=== PATIENT | male | born 1945 | race Hispanic/Latino ===

== ENCOUNTER 2018-06-11 11:41 | Inpatient (IN) | payer MEDICARE ==
[2018-06-07 12:07] LABS: BASOPHILS % 0.5 % (0.0-1.0); EOSINOPHILS # (AUTO) 0.1 (0.0-0.4); EOSINOPHILS % 1.6 % (0.0-6.0); HEMATOCRIT 25.9 % (38.2-49.6); HEMOGLOBIN 9.1 g/dL (14.0-18.0); LYMPHOCYTES # (AUTO) 0.9 (1.0-3.2); LYMPHOCYTES % 11.5 % (18.0-39.1); MEAN CORPUSCULAR HGB CONC 35.1 g/dL (31-35); MEAN CORPUSCULAR VOLUME 96.6 fL (81-99); MONOCYTES # (AUTO) 0.8 (0.2-0.8); MONOCYTES % 10.3 % (4.4-11.3); NEUTROPHILS # (AUTO) 5.6 (2.1-6.9); NEUTROPHILS % 74.9 % (38.7-80.0); PLATELET COUNT 350 x10e3/uL (140-360); RED BLOOD COUNT 2.68 x10e6/uL (4.3-5.7); RED CELL DISTRIBUTION WIDTH 13.9 % (11.7-14.4)
[2018-06-07 12:25] LABS: ANION GAP 7.1 mmol/L (8-16); BLOOD UREA NITROGEN 9 mg/dL (7-26); BUN/CREATININE RATIO 12 (6-25); CALCIUM 9.1 mg/dL (8.4-10.2); CARBON DIOXIDE 24 mmol/L (22-29); CHLORIDE 106 mmol/L (98-107); CREATININE, SERUM 0.74 mg/dL (0.72-1.25); EST GLOMERULAR FILTRATION RATE > 60 ML/MIN (60-); GLUCOSE 143 mg/dL (74-118); POTASSIUM 4.1 mmol/L (3.5-5.1); SODIUM 133 mmol/L (136-145)
--- NOTE | 2018-06-07 12:50 | Diagnostic Imaging Report ---
EXAMINATION: PA and lateral views of the chest. COMPARISON: None CLINICAL HISTORY: Preoperative examination for cystoscopy DISCUSSION: Right subclavian approach implantable cardiac device body projects over the right upper lung. Leads project over the right atrium and right ventricle. Lungs are well-inflated and without focal consolidation, pleural effusion, or pneumothorax. Normal heart size. No pulmonary edema. Atherosclerotic calcification of the thoracic aorta. No acute osseous abnormality. Multilevel degenerative disc changes of the thoracic spine. IMPRESSION: No acute cardiopulmonary abnormalities. Signed by: Dr. Jules Suh M.D. on 06/07/2018 12:47 PM
[~2018-06-11] VITALS: Ht 180.3 cm; Wt 94.9 kg
[~2018-06-11 11:41] MED LIST: CLOPIDOGREL75 MG PO; FERROUS SULFAT325 MG PO; FOLIC ACID1 MG PO; HYDROXYCHLOROQ200 MG PO; LEVOTHYROXINE75 MCG PO; METFORMIN HCL500 M2 PO; OXYBUTYNIN CHLOR5 MG PO; TAMSULOSIN HCL0.4 MG PO; VITAMIN D250000 UNIT PO
--- OUTSIDE RECORDS SUMMARY | 2018-06-11 11:44 | XMS REPORT | Clinical Summary ---
Author Author PAULINA [facility] Address Unknown Phone Unavailable Care Team Providers Care Card Table Attendant Name Role Phone Sharpless PCP Allergies No Known Allergies Medications End Date Status Medication Sig Dispensed Refills Start Date Active metFORMIN (GLUCOPHAGE) Take 500 mg 0 500 MG tablet by mouth daily. Active levothyroxine (SYNTHROID, Take 150 mcg 0 LEVOTHROID) 150 MCG by mouth tablet daily. Active ranolazine (RANEXA) 500 Take 500 mg 0 MG 12 hr tablet by mouth daily. Active clopidogrel (PLAVIX) 75 Take 75 mg by 0 mg tablet mouth daily. Active olmesartan (BENICAR) 20 Take 20 mg by 0 MG tablet mouth daily. Active Problems Not on file Family History Medical History Relation Name Comments Diabetes Father Hypertension Father Stroke Father Diabetes Mother Relation Name Status Comments Father Mother Social History Date Tobacco Use Types Packs/Day Years Used Quit: 11/19/1995 Former Smoker Alcohol Use Drinks/Week oz/Week Comments No Sex Assigned at Date Recorded Not on file Industry Job Start Date Occupation Not on file Not on file Not on file Travel End Travel History Travel Start No recent travel history available. Last Filed Vital Signs Not on file Plan of Treatment Not on file Results Not on fileafter 06/10/2017 Insurance Payer Benefit Subscriber ID Type Phone Address Plan / Group MEDICARE MEDICARE A xxxxxxxxxx Medicare B MCR SUPPLEMENT/INDIVIDUAL AARP/UNITE xxxxxxxxxxx [facility] D HEALTHCARE
--- OUTSIDE RECORDS SUMMARY | 2018-06-11 11:44 | XMS REPORT ---
Author Author Giovany Cohen [facility] eClinicalWorks Address Unknown Phone Unavailable Care Team Providers Care Sugar Mill Worker Name Role Phone Giovany Cohen Unavailable Allergies, Adverse Reactions, Alerts Substance Reaction Event Type N.K.D.A. Info Not Available Non Drug Allergy Problems Problem Type Condition Code Onset Dates Condition Status Assessment Polyarthritis M13.0 Active Problem Polyarthritis M13.0 Active Medications Medication Code System Code Instructions Start Date End Date Status Dosage Prednisone Taper [facility] 28209990080 5mg October 17, 2017 Active 3 tablets for 5 days, 2 tablets for 5 days and then 1 tablet for 5 days Vital Signs Date/Time: October 17, 2017 BMI 33.96 Index Weight 230 lbs Height 69 in Temperature 98.0 F Cardiac Monitoring Heart Rate 74 /min Blood Pressure Diastolic 60 mm Hg Blood Pressure Systolic 124 mm Hg Results No Known Results Summary Purpose eClinicalWorks Submission
--- OUTSIDE RECORDS SUMMARY | 2018-06-11 11:44 | XMS REPORT ---
Author Author [facility] Address Unknown Phone Unavailable Care Team Providers Care Vp Of Global Marketing Name Role Phone MAKI DICKEY Unavailable Unavailable Problems This patient has no known problems. Allergies, Adverse Reactions, Alerts This patient has no known allergies or adverse reactions. Medications This patient has no known medications. Results Test Description Test Time Test Comments Text Results Atomic Results Result Comments CHEST 2 VIEWS 2018-06-07 12:45:00 [place] [address] Patient Name: CHELITA PEREZ MR #: [id number] : 1945 Age/Sex: 73/M Req #: [id number] Adm Physician: Ordered by: MAKI DICKEY MD Report #: [id number] Location: OR Room/Bed: Procedure: [id number] DX/CHEST 2 VIEWS Exam Date: Exam Time: REPORT STATUS: Signed EXAMINATION: PA and lateral views of the chest. COMPARISON: None CLINICAL HISTORY: Preoperative examination for cystoscopy DISCUSSION: Right subclavian approach implantable cardiac device body projects over the right upper lung. Leads project over the right atrium and right ventricle. Lungs are well-inflated and without focal consolidation, pleural effusion, or pneumothorax. Normal heart size. No pulmonary edema. Atherosclerotic calcific ation of the thoracic aorta. No acute osseous abnormality. Multilevel degenerative disc changes of the thoracic spine. IMPRESSION: No acute cardiopulmonary abnormalities. Signed by: Dr. Neil Sifuentes M.D. on 06/07/2018 12:47 PM Dictated By: NEIL SIFUENTES MD [id number] Transcribed By: NIRMALA on 06/07/181246 COPY TO: MAKI DICKEY MD
--- OUTSIDE RECORDS SUMMARY | 2018-06-11 11:44 | XMS REPORT ---
Author Author Ciaran Petersen Organization eClinicalWorks Address Unknown Phone Unavailable Care Team Providers Care Lubricator Granulator Name Role Phone Ciaran Petersen CP Unavailable Allergies No Known Allergies Problems Problem Type Condition Code Onset Dates Condition Status Problem Bilateral carpal tunnel syndrome G56.03 Active Problem Inflammatory arthritis M19.90 Active Problem Anemia D64.9 Active Problem Polyarthritis M13.0 Active Medications No Known Medications Results No Known Results Summary Purpose eClinicalWorks Submission
--- OUTSIDE RECORDS SUMMARY | 2018-06-11 11:44 | XMS REPORT | Continuity of Care Document ---
Author Author [facility] Address Unknown Phone Unavailable Problems Problem Status Onset Date Classification Date Reported Comments Source Polyarthritis Active Problem 05/17/2018 Piyush Deaner Inflammatory arthritis Active Problem 05/17/2018 Piyush Petersen Hip pain, left Active Diagnosis 11/09/2017 Piyush Petersen Hip pain, right Active Diagnosis 11/09/2017 Piyush Petersen Other symptoms involving cardiovascular system Active Diagnosis 09/20/2017 Sonja Casillas Atheroscler-limb&claudic Active Problem 09/20/2017 Sonja Casillas DM w/o complication type II, uncontrolled Active Diagnosis 09/20/2017 Sonja Casillas SSS Active Diagnosis 09/20/2017 Sonja Casillas Thyroid dysfunction Active Diagnosis 09/20/2017 Sonja Casillas Atherosclerosis of [place] coronary artery of [place] heart without angina pectoris Active Problem 09/20/2017 Sonja Xiemed Bilateral carpal tunnel syndrome Active Problem 05/17/2018 Piyush Petersen Anemia Active Problem 05/17/2018 Piyush Petersen Skin rash Active Problem 05/17/2018 Piyush Petersen Medications Medication Details Route Status Patient Instructions Ordering Provider Order Date Source Vitamin D (Ergocalciferol) 1 capsule Orally Active 45734 UNIT Orally Once a week Vicki 05/16/2018 Piyush Petersen PredniSONE 1 tab prn Orally Active 5 MG Orally Once a day Vicki 11/06/2017 Piyush Petersen Hydroxychloroquine Sulfate 1 tablet with food or milk Orally Active 200 MG Orally bid Vicki 11/06/2017 Piyush Petersen PredniSONE 1 tab prn Orally Active 5 MG Orally Once a day Vicki 11/06/2017 Piyush Deaner Prednisone Taper 3 tablets for 5 days, 2 tablets for 5 days and then 1 tablet for 5 days NA Active 5mg Vicki 10/17/2017 Piyush Petersen VESIcare 1 tablet Orally Active 10 MG Orally Once a day Sonja Casillas Metformin HCl 1 tablet with meals Orally Active 500 MG Orally Twice a day Sonja Casillas Ferrous Sulfate not defined Orally Active 325 MG Orally Sonja Casillas MetFORMIN HCl ER 1 tablet with evening meal Orally Active 500 MG Orally Once a day Vicki Piyush Petersen Ferrous Sulfate as directed Orally Active 325 MG Orally Vicki Piyush Petersen Levothyroxine Sodium 1 tablet on an empty stomach in the morning Orally Active 150 MCG Orally Once a day Piyush Espino Clopidogrel Bisulfate 1 tablet Orally Active 75 MG Orally Once a day Piyush Espino Folic Acid 1 tablet Orally Active 1 MG Orally Once a day Vicki Piyush Petersen Hydroxychloroquine Sulfate TAKE 1 TABLET BY MOUTH TWICE DAILY WITH FOOD OR MILK NA Active 200 Vicki Piyush Petersen Allergies, Adverse Reactions, Alerts Substance Category Reaction Severity Reaction type Status Date Reported Comments Source N.K.D.A. Adverse Reaction Info Not Available Adverse Reaction Active 05/09/2018 Piyush Petersen Immunizations Immunization Date Given Site Status Last Updated Comments Source Results Order Name Results Value Reference Range Date Interpretation Comments Source Vital Signs Vital Sign Value Date Comments Source Weight 221.3 05/09/2018 Piyush Petersen Height 70 05/09/2018 Piyush Petersen Temperature Oral (F) 97.6 F 05/09/2018 Piyush Petersen Heart Rate 64 05/09/2018 Piyush Petersen Diastolic (mm Hg) 68 05/09/2018 Piyush Petersen Systolic (mm Hg) 122 05/09/2018 Piyush Petersen Weight 228.1 02/06/2018 Piyush Petersen Height 69 02/06/2018 Piyush Petersen Temperature Oral (F) 97.7 F 02/06/2018 Piyush Petersen Heart Rate 76 02/06/2018 Piyush Petersen Diastolic (mm Hg) 80 02/06/2018 Piyush Petersen Systolic (mm Hg) 120 02/06/2018 Piyush Petersen Weight 223.7 11/06/2017 Piyush Petersen Height 69 11/06/2017 Piyush Petersen Temperature Oral (F) 96.3 F 11/06/2017 Piyush Petersen Heart Rate 72 11/06/2017 Piyush Petersen Diastolic (mm Hg) 70 11/06/2017 Piyush Petersen Systolic (mm Hg) 140 11/06/2017 Piyush Petersen Weight 230 10/17/2017 Piyush Petersen Height 69 10/17/2017 Piyush Petersen Temperature Oral (F) 98.0 F 10/17/2017 Piyush Petersen Heart Rate 74 10/17/2017 Piyush Petersen Diastolic (mm Hg) 60 10/17/2017 Piyush Petersen Systolic (mm Hg) 124 10/17/2017 Piyush Petersen Weight 234 08/09/2017 Ahmed Ahmed Heart Rate 60 08/09/2017 Ahmed Ahmed Diastolic (mm Hg) 72 08/09/2017 Ahmed Ahmed Systolic (mm Hg) 120 08/09/2017 Ahmed Ahmed Weight 234 07/12/2017 Ahmed Ahmed Heart Rate 60 07/12/2017 Ahmed Ahmed Diastolic (mm Hg) 74 07/12/2017 Ahmed Ahmed Systolic (mm Hg) 118 07/12/2017 Ahmed Ahmed Encounters Location Location Details Encounter Type Encounter Number Reason For Visit Attending Provider ADM Date DC Date Status Source Procedures Procedure Code Date Perfomer Comments Source
--- OUTSIDE RECORDS SUMMARY | 2018-06-11 11:44 | XMS REPORT ---
Author Author Giovany Cohen Organization eClinicalWorks Address Unknown Phone Unavailable Care Team Providers Care Sandblasting Supervisor Name Role Phone Giovany Cohen CP Unavailable Allergies, Adverse Reactions, Alerts Substance Reaction Event Type N.K.D.A. Info Not Available Non Drug Allergy Problems Problem Type Condition Code Onset Dates Condition Status Assessment Skin rash R21 Active Problem Anemia D64.9 Active Problem Bilateral carpal tunnel syndrome G56.03 Active Problem Skin rash R21 Active Assessment Inflammatory arthritis M19.90 Active Problem Inflammatory arthritis M19.90 Active Problem Polyarthritis M13.0 Active Medications Medication Code System Code Instructions Start Date End Date Status Dosage Hydroxychloroquine Sulfate [facility] 91107863925 200 Active TAKE 1 TABLET BY MOUTH TWICE DAILY WITH FOOD OR MILK Clopidogrel Bisulfate [facility] 96435141111 75 MG Orally Once a day Active 1 tablet Folic Acid [facility] 55566575382 1 MG Orally Once a day Active 1 tablet Ferrous Sulfate [facility] [address]-74 325 MG Orally Active as directed Levothyroxine Sodium ND 47965132654 150 MCG Orally Once a day Active 1 tablet on an empty stomach in the morning MetFORMIN HCl ER ND 71108302304 500 MG Orally Once a day Active 1 tablet with evening meal Vital Signs Date/Time: May 09, 2018 BMI 32 Index Weight 221.3 lbs Height 70 in Temperature 97.6 F Cardiac Monitoring Heart Rate 64 /min Blood Pressure Diastolic 68 mm Hg Blood Pressure Systolic 122 mm Hg Results No Known Results Summary Purpose eClinicalWorks Submission
--- OUTSIDE RECORDS SUMMARY | 2018-06-11 11:44 | XMS REPORT ---
Author Author Sonja Casillas Organization eClinicalWorks Address Unknown Phone Unavailable Care Team Providers Care Accounting Analyst Name Role Phone Sonja Casillas CP Unavailable Allergies, Adverse Reactions, Alerts Substance Reaction Event Type N.K.D.A. 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 I25.10 Active Assessment 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 I25.10 Active Medications Medication Code System Code Instructions Start Date End Date Status Dosage VESIcare [facility] 61656104063 10 MG Orally Once a day Active 1 tablet Clopidogrel Bisulfate [facility] 83644843408 75 MG Orally Once a day Active 1 tablet Metformin HCl [facility] 54061516000 500 MG Orally Twice a day Active 1 tablet with meals Levothyroxine Sodium [facility] 13539419323 150 MCG Orally Once a day Active 1 tablet on an empty stomach in the morning Ferrous Sulfate [facility] [address]-16 325 MG Orally Active not defined Vital Signs Date/Time: July 12, 2017 BMI 45.70 Index Weight 234 lbs Height 5'11 in Cardiac Monitoring Heart Rate 60 /min Blood Pressure Diastolic 74 mm Hg Blood Pressure Systolic 118 mm Hg Results No Known Results Summary Purpose eClinicalWorks Submission
--- OUTSIDE RECORDS SUMMARY | 2018-06-11 11:44 | XMS REPORT ---
Author Author Sonja Casillas Organization eClinicalWorks Address Unknown Phone Unavailable Care Team Providers Care Engine Cleaner Name Role Phone Sonja Casillas CP Unavailable Allergies, Adverse Reactions, Alerts Substance Reaction Event Type N.K.D.A. 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 Assessment Other symptoms involving cardiovascular system R09.89 Active Problem Atherosclerosis of [place] coronary artery of [place] heart without angina pectoris I25.10 Active Assessment Atherosclerosis of [place] coronary artery of [place] heart without angina pectoris I25.10 Active Medications Medication Code System Code Instructions Start Date End Date Status Dosage Metformin HCl [facility] 87439953502 500 MG Orally Twice a day Active 1 tablet with meals Ferrous Sulfate [facility] [address]-06 325 MG Orally Active not defined VESIcare [facility] 26725177206 10 MG Orally Once a day Active 1 tablet Levothyroxine Sodium [facility] 21276592371 150 MCG Orally Once a day Active 1 tablet on an empty stomach in the morning Clopidogrel Bisulfate [facility] 99192461810 75 MG Orally Once a day Active 1 tablet Vital Signs Date/Time: August 09, 2017 BMI 45.70 Index Weight 234 lbs Height 5'11 in Cardiac Monitoring Heart Rate 60 /min Blood Pressure Diastolic 72 mm Hg Blood Pressure Systolic 120 mm Hg Results No Known Results Summary Purpose eClinicalWorks Submission
--- OUTSIDE RECORDS SUMMARY | 2018-06-11 11:44 | XMS REPORT ---
Author Author Giovany Cohen [facility] eClinicalWorks Address Unknown Phone Unavailable Care Team Providers Care Knit Goods Press Hand Name Role Phone Giovany Cohen CP Unavailable Allergies, Adverse Reactions, Alerts Substance Reaction Event Type N.K.D.A. Info Not Available Non Drug Allergy Problems Problem Type Condition Code Onset Dates Condition Status Problem Polyarthritis M13.0 Active Assessment Inflammatory arthritis M19.90 Active Problem Inflammatory arthritis M19.90 Active Assessment Hip pain, left M25.552 Active Assessment Hip pain, right M25.551 Active Medications Medication Code System Code Instructions Start Date End Date Status Dosage PredniSONE NDC 0 5 MG Orally Once a day November 06, 2017 Mar 06, 2018 Active 1 tab prn Hydroxychloroquine Sulfate NDC 14416567981 200 MG Orally bid November 06, 2017 Mar 06, 2018 Active 1 tablet with food or milk Vital Signs Date/Time: November 06, 2017 BMI 33.03 Index Weight 223.7 lbs Height 69 in Temperature 96.3 F Cardiac Monitoring Heart Rate 72 /min Blood Pressure Diastolic 70 mm Hg Blood Pressure Systolic 140 mm Hg Results No Known Results Summary Purpose eClinicalWorks Submission
--- OUTSIDE RECORDS SUMMARY | 2018-06-11 11:44 | XMS REPORT ---
Author Author Giovany Cohen Organization eClinicalWorks Address Unknown Phone Unavailable Care Team Providers Care Manager Of Finance Name Role Phone Giovany Cohen CP Unavailable Allergies, Adverse Reactions, Alerts Substance Reaction Event Type N.K.D.A. Info Not Available Non Drug Allergy Problems Problem Type Condition Code Onset Dates Condition Status Assessment Anemia D64.9 Active Problem Bilateral carpal tunnel syndrome G56.03 Active Problem Inflammatory arthritis M19.90 Active Problem Anemia D64.9 Active Assessment Inflammatory arthritis M19.90 Active Assessment Bilateral carpal tunnel syndrome G56.03 Active Problem Polyarthritis M13.0 Active Medications Medication Code System Code Instructions Start Date End Date Status Dosage MetFORMIN HCl ER [facility] 38434770257 500 MG Orally Once a day Active 1 tablet with evening meal Ferrous Sulfate [facility] [address]-06 325 MG Orally Active as directed Levothyroxine Sodium ND 36101859630 150 MCG Orally Once a day Active 1 tablet on an empty stomach in the morning Clopidogrel Bisulfate [facility] 42803398237 75 MG Orally Once a day Active 1 tablet Folic Acid ND 52906619441 1 MG Orally Once a day Active 1 tablet PredniSONE [facility] 19649265724 5 MG Orally Once a day November 06, 2017 Mar 06, 2018 Active 1 tab prn Hydroxychloroquine Sulfate ND 67277190442 200 MG Orally bid November 06, 2017 Mar 06, 2018 Active 1 tablet with food or milk Vital Signs Date/Time: Feb 06, 2018 BMI 33.68 Index Weight 228.1 lbs Height 69 in Temperature 97.7 F Cardiac Monitoring Heart Rate 76 /min Blood Pressure Diastolic 80 mm Hg Blood Pressure Systolic 120 mm Hg Results No Known Results Summary Purpose eClinicalWorks Submission
--- OUTSIDE RECORDS SUMMARY | 2018-06-11 11:44 | XMS REPORT ---
Author Author Giovany Cohen Organization eClinicalWorks Address Unknown Phone Unavailable Care Team Providers Care Music Video Producer Name Role Phone Giovany Cohen CP Unavailable Allergies No Known Allergies Problems Problem Type Condition Code Onset Dates Condition Status Problem Anemia D64.9 Active Problem Bilateral carpal tunnel syndrome G56.03 Active Problem Skin rash R21 Active Problem Inflammatory arthritis M19.90 Active Problem Polyarthritis M13.0 Active Medications Medication Code System Code Instructions Start Date End Date Status Dosage Vitamin D (Ergocalciferol) [facility] [place] 17540861079 14826 UNIT Orally Once a week May 16, 2018 Active 1 capsule Results No Known Results Summary Purpose eClinicalWorks Submission
[2018-06-11] MEDS ORDERED: CEFAZOLIN SOD 1 GM/NS 50ML 50 ML IV ONE (12:52)
[2018-06-11] MEDS ORDERED: CLINDAMYCIN 600MG / 50ML 50 ML IV ONE (12:52)
[2018-06-11] MEDS ORDERED: BUPIVACAINE 0.25% 30ML SDV INJ ONE (13:22)
[2018-06-11] MEDS ORDERED: IOPAMIDOL 610MG/1ML 300 MG/ML VIAL IV ONE (13:22)
[2018-06-11] MEDS ORDERED: MUPIROCIN 2% OINT 22 GM TUBE ONE (14:41)
[2018-06-11] MEDS: SOD CHL 0.45%/POT CHL 20MEQ 1,000 ML IV SCH (15:17)
[2018-06-11] MEDS ORDERED: MORPHINE SULFATE 1 MG/ML 30ML PCA IV PRN (15:30)
[2018-06-11] MEDS ORDERED: ONDANSETRON HCL INJ 2MG/ML 2ML 2 MG/ML VIAL IV PRN (15:30)
[2018-06-11] MEDS ORDERED: NALOXONE HCL INJ 0.4 MG/ML AMP IV PRN (15:30)
[2018-06-11] MEDS ORDERED: DIPHENHYDRAMINE HCL 25 MG CAP PO PRN (15:30)
--- OUTSIDE RECORDS SUMMARY | 2018-06-11 15:35 | XMS REPORT | Clinical Summary ---
Author Author PAULINA [facility] Address Unknown Phone Unavailable Care Team Providers Care Medical And Health Services Manager Name Role Phone Sharpless PCP Allergies No [...] xxxxxxxxxx Medicare B MCR SUPPLEMENT/INDIVIDUAL AARP/UNITE xxxxxxxxxxx [facility] D HEALTHCARE
[2018-06-11] MEDS ORDERED: MORPHINE SULFATE INJ 4 MG/ML INJ 1ML ONE (15:48)
[2018-06-11] MEDS ORDERED: MORPHINE SULFATE 1 MG/ML 30ML PCA ONE (15:49)
[2018-06-11] MEDS: DOCUSATE SODIUM 100 MG CAP PO SCH (17:00)
[2018-06-11] MEDS ORDERED: FENTANYL CITRATE/PF 100MCG/2 ML INJ ONE (18:51)
[2018-06-11] MEDS ORDERED: MIDAZOLAM HCL 2 MG/2 ML VIAL ONE (18:51)
[2018-06-11] MEDS ORDERED: ONDANSETRON HCL INJ 2MG/ML 2ML 2 MG/ML VIAL ONE (18:59)
[2018-06-11] MEDS ORDERED: DEXAMETHASONE SOD PHOS INJ 4 MG/ML VIAL ONE ×2 (18:59)
[2018-06-11] MEDS ORDERED: SEVOFLURANE INHAL SOLN 250 ML PEN BTL ONE (18:59)
[2018-06-11] MEDS ORDERED: ACETAMINOPHEN 1000 MG/100 ML IV ONE (18:59)
[2018-06-11] MEDS ORDERED: LIDOCAINE HCL 2% LOCAL INJ 5 ML SDV VIAL INJ ONE (18:59)
[2018-06-11] MEDS ORDERED: ROCURONIUM BROMIDE 10 MG/ML 5ML VIAL ONE (18:59)
[2018-06-11] MEDS ORDERED: PROPOFOL IV EMULSION 10 MG/ML 20 ML VIAL ONE (18:59)
--- NOTE | 2018-06-11 20:25 | NUR ---
Received patient from recovery via stretcher. Patient is alert and easily arouse. Forbes catheter in place. Dressing to scrotum and penis in tact. No active bleeding noted.
--- NOTE | 2018-06-11 20:30 | NUR ---
Patient made comfortable in bed. Call light within reach. Patient expressed understanding how to use SYNTHETIC DEPARTMENT SUPERVISOR. no complaint of pain at this time.
[2018-06-11 21:25] VITALS: BP 133/61
[2018-06-11 21:30] VITALS: BP 133/61
[2018-06-11] MEDS: CEFAZOLIN SOD 1 GM/NS 50ML 50 ML IV SCH (22:00)
[2018-06-11 22:20] VITALS: BP 110/56
[2018-06-11] MEDS: CLINDAMYCIN 300MG 50 ML IV SCH (22:51)
[2018-06-12] VITALS (9 sets, daily range): BP systolic 93–145; BP diastolic 47–65
[2018-06-12] MEDS: SOD CHL 0.45%/POT CHL 20MEQ 1,000 ML IV SCH (04:37)
[2018-06-12 05:46] LABS: BASOPHILS % 0.2 % (0.0-1.0); EOSINOPHILS % 0.4 % (0.0-6.0); HEMATOCRIT 24.9 % (38.2-49.6); HEMOGLOBIN 8.8 g/dL (14.0-18.0); LYMPHOCYTES % 10.3 % (18.0-39.1); MEAN CORPUSCULAR HEMOGLOBIN 34.4 pg (28-32); MEAN CORPUSCULAR HGB CONC 35.3 g/dL (31-35); MEAN CORPUSCULAR VOLUME 97.3 fL (81-99); MONOCYTES # (AUTO) 0.9 (0.2-0.8); MONOCYTES % 9.9 % (4.4-11.3); NEUTROPHILS # (AUTO) 7.3 (2.1-6.9); NEUTROPHILS % 78.9 % (38.7-80.0); PLATELET COUNT 294 x10e3/uL (140-360); RED BLOOD COUNT 2.56 x10e6/uL (4.3-5.7); RED CELL DISTRIBUTION WIDTH 13.7 % (11.7-14.4)
[2018-06-12 06:04] LABS: BLOOD UREA NITROGEN 14 mg/dL (7-26); BUN/CREATININE RATIO 20 (6-25); CALCIUM 8.7 mg/dL (8.4-10.2); CARBON DIOXIDE 26 mmol/L (22-29); CHLORIDE 102 mmol/L (98-107); EST GLOMERULAR FILTRATION RATE > 60 ML/MIN (60-); GLUCOSE 122 mg/dL (74-118); SODIUM 135 mmol/L (136-145)
[2018-06-12] MEDS: CLINDAMYCIN 300MG 50 ML IV SCH ×3 (06:30→22:29)
[2018-06-12] MEDS: LEVOTHYROXINE SODIUM 75 MCG TAB PO SCH (06:54)
[2018-06-12] MEDS: CEFAZOLIN SOD 1 GM/NS 50ML 50 ML IV SCH ×3 (07:00→21:50)
[2018-06-12] MEDS ORDERED: HYDROCODONE/APAP 10MG-325MG TAB PO PRN (08:30)
[2018-06-12] MEDS ORDERED: MORPHINE SULFATE INJ 4 MG/ML INJ 1ML IV PRN ×2 (08:30→08:45)
--- NOTE | 2018-06-12 08:45 | NUR ---
MD DICKEY INTO SEE PT, DISCUSSED POC, PT C/O "CHEST DISCOMFORT", TELEPHONED MD PRETTY TO MAKE AWARE, AWAITING CALL BACK Addendum: 06/12/18 at 8865 by Laura Estrada RN ENTERED IN ERROR
--- NOTE | 2018-06-12 08:48 | NUR ---
MD DICKEY INTO SEE PT, DISCUSSED POC, PT C/O "CHEST DISCOMFORT", TELEPHONED MD PRETTY TO MAKE AWARE, AWAITING CALL BACK
[2018-06-12] MEDS ORDERED: NEOMYCIN/POLYMYXIN/BACITRACIN 15 GM TUBE TOP SCH (09:00)
[2018-06-12] MEDS ORDERED: ASPIRIN 81 MG CHEW TAB PO ONE (09:00)
[2018-06-12] MEDS: DOCUSATE SODIUM 100 MG CAP PO SCH ×2 (10:00→16:17)
[2018-06-12] MEDS: SENNOSIDES 8.6 MG TAB PO SCH ×2 (10:00→16:18)
[2018-06-12] MEDS: TAMSULOSIN HCL 0.4 MG CAP PO SCH ×2 (10:00→16:18)
[2018-06-12] MEDS: FOLIC ACID 1 MG TAB PO SCH (10:00)
[2018-06-12] MEDS: FAMOTIDINE 20 MG TAB PO SCH ×2 (10:00→16:17)
--- NOTE | 2018-06-12 11:10 | NUR ---
PT OOB WITH STANDBY ASSIST, UNABLE TO HAVE BM AT THIS TIME, ASSISTED TO SIT ON SIDE OF BED, LUNCH TABLE SET UP, CALL LIGHT WITHIN REACH
[2018-06-12] MEDS: ACETAMINOPHEN/CODEINE 300MG - 30MG TAB PO PRN (13:20)
--- NOTE | 2018-06-12 14:15 | NUR ---
Visit made by the Spiritual Care Department Pastoral Visitor, Nell Jhaveri. PV provided pastoral presence, prayer, hospitality, and supportive listening. Pastoral Visitor informed pt/family of the scope of Advertising Representative Services and availability. ARMANDO TUBBS Cnc Milling Machine Operator Spiritual Care Department O: [phone] Pager: [phone] ([phone] number calling from)
--- NOTE | 2018-06-12 14:32 | NUR ---
DRESSING CHANGED PER MD ORDER, PT TOLERATED WELL Addendum: 06/12/18 at 1621 by Claudia Horn RN SCANT AMOUNT OF BLOODY DRAINAGE NOTED FROM JENNIFER
--- NOTE | 2018-06-12 15:08 | NUR ---
CASE MANAGEMENT ASSESSMENT Structural Steel Equipment Erector to bedside to discuss plan of care with patient/family. CM/SW role and care transitions discussed. Anticipated discharge plan discussed along with duration of care. CM/SW discussed patients right to make decisions in care. CM/SW work hours given. Patient lives: with [facility] Admit/Transfer: from PACU Hospital/ER visits since last admit: last hospitalization in 2012 POA/Emergency contact: Lynette Pabon [phone] Current/Previous Home Health: none PCP/Follow-up Care: Dr. Garnica - PCP; pt stated he will follow up with Dr. Clemens after discharge Current/Previous DME: none Medications (referring to index hospitalization or the first time you were in the hospital) a. Were changes made in your medications when you were in the hospital on [date of index hospitalization]? n/a b. Did you understand the changes? n/a c. Were you able to obtain your new medications right away? n/a d. Were you able to take your medications like the doctor wanted you to? n/a e. Did the hospital give you an accurate, easy to understand list of medications when you left? n/a Scale of 1-10 how comfortable does patient feel with disease management in outpatient settin Other Services: none Employment Status: retired Areas of Concerns: urethral stricture Referral Needs: none Education Needs: post procedure care IMM/NUNEZ given and signed (if applicable): IMM letter delivered and explained to pt. He verbalized understanding. Signed copy placed in chart. Copy to pt. Goal for discharge: Home CM/SW left business card at the bedside with contact information. Name and number was also written on the patients whiteboard. Patient verbalized understanding of discussion. CM will follow-up with ongoing discharge and transition of care needs.
[2018-06-12 15:16] LABS: CREATINE KINASE MB 0.8 ng/mL (0-5.0)
[2018-06-12 19:46] LABS: CREATINE KINASE 44 IU/L (30-200)
[2018-06-12] MEDS ORDERED: FERROUS SULFATE 325 MG TAB PO SCH (21:00)
[2018-06-12] MEDS: NEOMYCIN/POLYMYXIN/BACITRACIN 15 GM TUBE TOP SCH (21:05)
--- NOTE | 2018-06-12 22:46 | NUR ---
PATIENT COMPLAINT OF NAUSEA AND ABDOMINAL PAIN WITH ANTIBIOTICS. REFUSED PRN PAIN AND NAUSEA MEDICATION
[2018-06-12 23:09] LABS: CREATINE KINASE 48 IU/L (30-200)
[2018-06-13] VITALS: BP 126/70
[2018-06-13 04:00] VITALS: BP 117/57
[2018-06-13] MEDS: CLINDAMYCIN 300MG 50 ML IV SCH (05:28)
[2018-06-13] MEDS: CEFAZOLIN SOD 1 GM/NS 50ML 50 ML IV SCH (05:28)
[2018-06-13] MEDS: LEVOTHYROXINE SODIUM 75 MCG TAB PO SCH (05:28)
[2018-06-13 06:55] LABS: BASOPHILS % 0.3 % (0.0-1.0); EOSINOPHILS # (AUTO) 0.1 (0.0-0.4); EOSINOPHILS % 1.4 % (0.0-6.0); HEMATOCRIT 25.8 % (38.2-49.6); HEMOGLOBIN 8.7 g/dL (14.0-18.0); LYMPHOCYTES # (AUTO) 0.8 (1.0-3.2); LYMPHOCYTES % 12.1 % (18.0-39.1); MEAN CORPUSCULAR HEMOGLOBIN 33.1 pg (28-32); MEAN CORPUSCULAR HGB CONC 33.7 g/dL (31-35); MEAN CORPUSCULAR VOLUME 98.1 fL (81-99); MONOCYTES # (AUTO) 0.8 (0.2-0.8); MONOCYTES % 12.5 % (4.4-11.3); NEUTROPHILS # (AUTO) 4.9 (2.1-6.9); NEUTROPHILS % 73.1 % (38.7-80.0); PLATELET COUNT 309 x10e3/uL (140-360); RED BLOOD COUNT 2.63 x10e6/uL (4.3-5.7); RED CELL DISTRIBUTION WIDTH 13.4 % (11.7-14.4)
[2018-06-13 07:16] LABS: ANION GAP 11.9 mmol/L (8-16); BLOOD UREA NITROGEN 12 mg/dL (7-26); BUN/CREATININE RATIO 16 (6-25); CALCIUM 8.8 mg/dL (8.4-10.2); CARBON DIOXIDE 27 mmol/L (22-29); CHLORIDE 101 mmol/L (98-107); CREATININE, SERUM 0.75 mg/dL (0.72-1.25); EST GLOMERULAR FILTRATION RATE > 60 ML/MIN (60-); GLUCOSE 149 mg/dL (74-118); POTASSIUM 3.9 mmol/L (3.5-5.1); SODIUM 136 mmol/L (136-145)
--- NOTE | 2018-06-13 07:34 | NUR ---
Rcvd patient in report this am. Patient is awake in bed. Patient c/o nausea and refusing his antibiotics. Informed patient we would discuss with the dr when he rounds
[2018-06-13 08:26] VITALS: BP 142/66
[2018-06-13] MEDS: TAMSULOSIN HCL 0.4 MG CAP PO SCH (09:28)
[2018-06-13] MEDS: FAMOTIDINE 20 MG TAB PO SCH (09:28)
[2018-06-13] MEDS: SENNOSIDES 8.6 MG TAB PO SCH (09:28)
[2018-06-13] MEDS: NEOMYCIN/POLYMYXIN/BACITRACIN 15 GM TUBE TOP SCH (09:28)
[2018-06-13] MEDS: FOLIC ACID 1 MG TAB PO SCH (09:28)
[2018-06-13] MEDS: DOCUSATE SODIUM 100 MG CAP PO SCH (09:28)
--- NOTE | 2018-06-13 09:30 | NUR ---
IMM EXPLAINED, SIGNED BY PT AND ON CHART COPY TO PT IN CARE TRANSITION FOLDER
[2018-06-13 12:09] VITALS: BP 123/59
[2018-06-13] MEDS: ACETAMINOPHEN/CODEINE 300MG - 30MG TAB PO PRN (13:39)
--- NOTE | 2018-06-13 14:00 | NUR ---
Doll removed at this time. Removed 500ml of straw urine from doll. Patient due to void
[2018-06-13 15:16] VITALS: BP 123/59
--- NOTE | 2018-06-13 15:31 | NUR ---
Patient voided at this time.
[2018-06-13] MEDS ORDERED: BACTRIM DS TAB1 EACH PO (15:37)
[2018-06-13] MEDS ORDERED: TYLENOL WITH C1 EACH PO (15:37)
--- NOTE | 2018-06-13 15:45 | NUR ---
Removed IV from right hand. Pressure dressing applied.
[2018-06-13 16:10] VITALS: BP 112/72
--- NOTE | 2018-06-13 16:51 | NUR ---
Patient discharged from facility to home. Patient assisted out via staff. Reviewed all discharge instructions, follow up appts and RX's given. NO s/s of distress noted
--- NOTE | 2018-06-18 10:37 | Operative Report ---
DATE OF PROCEDURE: 06/11/2018 SURGEON: Lokesh Clemens MD PREOPERATIVE DIAGNOSES: 1. Urethral stricture disease. 2. Phimosis-like deformity of the penis, burying the penis into the scrotum with severely distorted external genitalia anatomy. POSTOPERATIVE DIAGNOSES: 1. Urethral stricture disease. 2. Phimosis-like deformity of the penis, burying the penis into the scrotum with severely distorted external genitalia anatomy. OPERATIONS PERFORMED: 1. Cystourethroscopy with urethral stricture dilation (surgery performed for the diagnosis of the stricture). 2. Cystourethroscopy with bilateral ureteral catheterization and retrograde ureteropyelography (surgery performed to evaluate the upper tract in light of the hyperreflexic bladder). 3. Interpretation of retrograde ureteropyelography. 4. Supervision of fluoroscopy, no radiologist present. 5. Incision of scar and preparation of wound for approximation. 6. Complex wound closure with mobilization of scrotal flaps, requiring multiple incisions totaling approximately 15 cm of wound length. V BELT COVERER: Jeancarlos Clemens MD ANESTHESIA: General. COMPLICATIONS: None. CLINICAL SUMMARY: Gael Pabon is a 73-year-old man, who underwent retropubic radical prostatectomy followed by radiotherapy. The patient has developed the above preoperative diagnoses. The patient's penis is completely buried within the scrotum. He has to sit down to void and cannot handle his penis at all. He has phimotic band from the midshaft of the penis that is burying his penis. He is brought for reconstruction. He is aware of the risks of bleeding, infection, injury to adjacent structures, need for additional procedures, and elected to proceed. OPERATIVE PROCEDURE IN DETAIL: Informed consent was verified. Gael Pabon was preoperatively identified, taken to the operating room, placed on the operating table in supine position. Anesthesia was uneventfully begun. The patient was then carefully and gently repositioned in dorsal lithotomy position with all pressure points well padded. His genitalia were shaved, prepared, and draped in usual sterile fashion. A cystoscope sheath with the visual obturator in place was atraumatically inserted in the patient's urethra. It was guided down the unremarkable distal urethra to the bulbar region, where there was a bulbourethral stricture. It was dilated to a 22.5-[place] in size and then we went through the normal sphincteric region. We then passed through the wide-open urethrovesical anastomosis and into the patient's bladder. Panendoscopy of the urinary bladder revealed heavy trabeculations with no tumors, no stones, no diverticula. Blanched mucosa was present in the caudal portion of the bladder. An 8-[place] catheter was used to cannulate each ureter and retrograde ureteropyelogram was performed. Interpretation of retrograde ureteropyelography, contrast was instilled in a retrograde fashion bilaterally. There were no tumors, no stones, and no diverticula. Unobstructed drainage was observed bilaterally fluoroscopically. We made a ventral incision through the scar of the penis. This incision was extended proximally into the mid scrotum in the midline. This resulted in our ability to deliver the penis from the scrotum. Betadine was utilized to repair the patient's penis following the exposure and delivery of the penis into the light of . We then made a secondary incision in the scrotum in order to create a pedicle flap. We made sure the flap was wider at its base in order to maximize its viability. We fully mobilized the skin of the penis as well as the skin of the scrotum and then we mobilized the flap and brought it up to fill in the skin defect along the ventral penile shaft. We utilized interrupted chromic sutures throughout the entire reconstruction to maximize blood supply and minimize tension. We utilized both simple sutures as well as vertical mattress sutures to maximize the closure quality. The patient now was left with a penis that he could handle and he can void normally. He should be able to void normally without needing to sit down. Sterile dressings were applied with bacitracin ointment, Xeroform gauze, and loose-fitting Amanda and the patient was uneventfully reversed from the anesthesia and taken to the recovery room in stable condition. There were no complications to the procedure. The patient tolerated the procedure well. Sponge, needle, and instrument count was correct x2 at the end the case. Estimated blood loss was minimal. We will proceed with postoperative care and of course lifelong urological followup. Lokesh Clemens MD [place]/MODL /[id number] cc: Dr. Juan Francisco Garnica
== END 2018-06-13 16:52 | disposition home or self-care (01) | DRG 710 ==
LOC: OR 11:41 → PACU V 15:21 → MED/SURG 20:27
PROVIDERS: ADMIT Internal Medicine; ATTEND Internal Medicine
PROC: 0VXT0ZS Transfer Prepuce to Penis, Open Approach (ICD-10-PCS; 2018-06-11)
PROC: 0VN Male Reproductive System, Release (ICD-10-PCS; 2018-06-11)
PROC: BT141ZZ Fluoroscopy of Kidneys, Ureters and Bladder using Low Osmolar Contrast (ICD-10-PCS; 2018-06-11)
PROC: 0T7D8DZ Dilation of Urethra with Intraluminal Device, Via Natural or Artificial Opening Endoscopic (ICD-10-PCS; principal; 2018-06-11 13:00)
DX: Q55.69 Other congenital malformation of penis (principal); N35.919 Unspecified urethral stricture, male, unspecified site; N47.1 Phimosis; I25.10 Atherosclerotic heart disease of native coronary artery without angina pectoris; Z85.46 Personal history of malignant neoplasm of prostate; Z95.0 Presence of cardiac pacemaker; Z87.891 Personal history of nicotine dependence
CPT/HCPCS: 36415; 71046; 74420; 80048; 82550; 82553; 82948; 84484; 85025; 93005; J0690; J1100; J2001; J2250; J2270; J2405

== ENCOUNTER 2024-05-10 13:06 | Emergency (ER) | payer MEDICARE ==
[~2024-05-10] VITALS: Ht 180.3 cm; Wt 93.9 kg
[~2024-05-10 13:06] MED LIST changes: +ALENDRONATE SOD70 MG PO; +BACTRIM DS TAB1 EACH PO; +CARVEDILOL3.125 MG PO; +LEVOTHYROXINE125 MCG PO; +METFORMIN HCL500 M1 PO; +PREDNISONE5 MG PO; +TYLENOL WITH C1 EACH PO
[2024-05-10 13:28] VITALS: PULSE 65; RESP 16; TEMP 98
[2024-05-10] MEDS ORDERED: CEFDINIR300 MG PO (13:59)
[2024-05-10] MEDS: IBUPROFEN 600 MG TAB PO STA (14:00)
[2024-05-10 14:13] LABS: BILIRUBIN,URINE NEGATIVE (NEGATIVE); CLARITY,URINE CLOUDY (CLEAR); COLOR,URINE ORANGE (YELLOW); GLUCOSE, URINE NEGATIVE (NEGATIVE); KETONES,URINE NEGATIVE (NEGATIVE); LEUKOCYTE ESTERASE ,URINE 1+ (NEGATIVE); NITRITE,URINE NEGATIVE (NEGATIVE); PH,URINE 6 (5 - 7); PROTEIN,URINE DIPSTICK >=300 (NEGATIVE); URINE UROBILINOGEN 1 mg/dL (0.2 - 1)
[2024-05-10 14:24] VITALS: BP 152/89; RESP 16; TEMP 98.2; O2SAT 100
[2024-05-10 14:35] LABS: BACTERIA,URINE MANY /HPF; EPITHELIAL CELLS,URINE FEW /LPF; RBC,URINE 21-50 /HPF (0-5); RENAL EPITHELIAL CELLS,URINE FEW; TRANSITIONAL EPI CELLS,URINE FEW; WBC,URINE (MAN) >50 /HPF (0-5)
== END 2024-05-10 14:27 | disposition home or self-care (01) ==
LOC: ER 13:13
DX: R30.0 Dysuria (principal); N39.0 Urinary tract infection, site not specified; E11.9 Type 2 diabetes mellitus without complications; Z95.0 Presence of cardiac pacemaker; Z95.5 Presence of coronary angioplasty implant and graft; Z85.46 Personal history of malignant neoplasm of prostate
CPT/HCPCS: 81001; 87086; 99283